=== PATIENT | male | born 1995 | race American Indian/Alaskan Native ===

== ENCOUNTER 2018-09-18 19:09 | Emergency (ER) | payer OTHER ==
--- NOTE | 2018-09-18 19:30 | Event Note ---
ED Screening Note Date of service: 09/18/18 Time: 19:27 ED Screening Note: This is a 23 y.o. M. that presents to the ER with pain to left jaw. Patient states she was coming down a ladder when he slipped and fell from the 3rd step. The left side of his face hit the counter top causing pain. Denies loc This initial assessment/diagnostic orders/clinical plan/treatment(s) is/are subject to change based on patients health status, clinical progression and re- assessment by fellow clinical providers in the ED. Further treatment and workup at subsequent clinical providers discretion. Patient/guardian urged not to elope from the ED as their condition may be serious if not clinically assessed and managed. Initial orders include: CT of facial bones
--- NOTE | 2018-09-18 20:13 | Emergency Department Report ---
ED Fall HPI - General Chief Complaint: Fall Stated Complaint: JAW INJURY Time Seen by Provider: 09/18/18 19:26 Source: patient Mode of arrival: Ambulatory - History of Present Illness Initial Comments: Patient is 23 years old male with no significant past medical history. Patient presented to the ER for evaluation after a fall from a three-step ladder landed on his left face complaining of left jaw pain. Patient denied any head injury, neck injury, chest injury or abdominal injury. No extremity tenderness. Patient is speaking in a full sentence was no difficulty. Patient also denied any swallowing problem. MD Complaint: fall -: Sudden, This afternoon Fall From: down stairs (#) When Fall Occurred: 1-3 hours [employer] Fall Witnessed: yes, by bystander Place Fall Occurred: work Loss of Consciousness: none Prolonged Down Time?: no Symptoms Prior to Fall: none Location: face Severity scale (0 -10): 4 Quality: sharp Context: tripped/slipped Associated Symptoms: denies - Related Data Allergies Allergy/AdvReac Type Severity Reaction Status Date / Time No Known Allergies Allergy Unverified 09/18/18 19:15 ED Review of Systems ROS: Stated complaint: JAW INJURY Other details as noted in HPI Comment: All other systems reviewed and negative Constitutional: denies: chills, fever Respiratory: denies: cough, orthopnea, shortness of breath, SOB with exertion Cardiovascular: denies: chest pain, palpitations Gastrointestinal: denies: abdominal pain Musculoskeletal: denies: back pain Neurological: denies: headache, weakness, numbness, paresthesias, confusion, a bnormal gait ED Past Medical Hx - Past Medical History Previous Medical History?: No - Surgical History Past Surgical History?: No - Social History Smoking Status: Never Smoker Substance Use Type: None ED Physical Exam - General Limitations: No Limitations General appearance: alert, in no apparent distress - Head Head exam: Present: atraumatic, normocephalic, normal inspection - ENT ENT exam: Present: other (left jaw tenderness.) - Neck Neck exam: Present: normal inspection, full ROM. Absent: tenderness, meningismus, lymphadenopathy, thyromegaly - Respiratory Respiratory exam: Present: normal lung sounds bilaterally. Absent: respiratory distress, wheezes, rales, rhonchi, stridor, chest wall tenderness, accessory muscle use, decreased breath sounds, prolonged expiratory - Cardiovascular Cardiovascular Exam: Present: regular rate, normal rhythm, normal heart sounds - GI/Abdominal GI/Abdominal exam: Present: soft, normal bowel sounds. Absent: distended, tenderness, guarding, rebound, rigid, organomegaly, mass, bruit, pulsatile mass, hernia - Extremities Exam Extremities exam: Present: normal inspection, full ROM, normal capillary refill. Absent: calf tenderness - Back Exam Back exam: Present: normal inspection, full ROM. Absent: tenderness, CVA tenderness (R), CVA tenderness (L), muscle spasm, paraspinal tenderness, vertebral tenderness - Neurological Exam Neurological exam: Present: alert, oriented X3, CN II-XII intact, normal gait, reflexes normal - Skin Skin exam: Present: warm, intact, normal color ED Course Vital Signs 09/18/18 09/18/18 09/18/18 19:15 20:20 20:25 Temperature 98.4 F 98.3 F Pulse Rate 64 72 Respiratory 18 13 13 Rate Blood Pressure 139/79 Blood Pressure 130/70 [Right] O2 Sat by Pulse 100 99 99 Oximetry ED Medical Decision Making - Radiology Data Radiology results: report reviewed - Medical Decision Making Patient is 23 years old male with no significant past medical history. Patient presented to the ER for evaluation after a fall from a three-step ladder landed on his left face complaining of left jaw pain. Patient denied any head injury, neck injury, chest injury or abdominal injury. No extremity tenderness. Pat ient is speaking in a full sentence was no difficulty. Patient also denied any swallowing problem. Patient in CT facial bones showed bilateral mandibular fracture. I discussed the patient with [facility], trauma. , from trauma accepted the patient to be transferred to [place] [facility]. Critical Care Time: Yes Critical care time in (mins) excluding proc time.: 30 Critical care attestation.: If time is entered above; I have spent that time in minutes in the direct care of this critically ill patient, excluding procedure time. ED Disposition Clinical Impression: Fall, Bilateral mandibular fracture Disposition: [id number] ANOTHER TYPE HLTHCARE Is pt being admited?: No Condition: Stable
--- NOTE | 2018-09-18 21:35 | Cat Scan Report ---
CT facial bones without contrast Clinical history: Left jaw pain FINDINGS: There is a minimally displaced fracture involving the body of the right mandible with obliq ue a component extending along the root of the posterior right premolar tooth the fracture also invol ves the cortex situated between the left at prevertebral or L2. The fracture also traverses the right submandibular canal along the course of the inferior alveolar nerve. There is also an oblique fracture involving the left ramus with slight displacement of the inferior c omponent. The fracture courses posterior to the left molar teeth at. This fracture also a crosses the left mandibular canal. The mandibular condyles and coronoid processes are intact. The condyles are a lso properly positioned within the to provide either joints. The orbital charles, paranasal sinuses and zygomatic arches appear intact. There is extensive mucosal t hickening within the ethmoid and maxillary sinuses. Milder findings are noted within the frontal and sphenoid sinuses at. The mastoid air cells are pneumatized. The optic globes appear to demonstrate ap propriate size and configuration. All CT scans at this location are performed using the CT dose reduc tion for ALARA by means of automated exposure control. IMPRESSION: There are fractures involving the body of the right mandible and ramus of the left mandible as detail ed above. There is sinus inflammatory disease as described. Signer Name: Mason Singletary MD Signed: 09/18/2018 9:31 PM Workstation Name: [id number]
[2018-09-18] MEDS ORDERED: MORPHINE ONE (21:59)
[2018-09-18] MEDS ORDERED: ZOFRAN ONE (21:59)
[2018-09-18] MEDS ORDERED: MORPHINE IV ONE (22:01)
[2018-09-18] MEDS ORDERED: ZOFRAN IV ONE (22:01)
[2018-09-18 22:18] VITALS: BP 137/66
== END 2018-09-18 22:30 | disposition other institution (70) ==
LOC: ED 19:09
DX: S02.642A Fracture of ramus of left mandible, initial encounter for closed fracture (principal); S82.891A Other fracture of right lower leg, initial encounter for closed fracture; W17.89XA Other fall from one level to another, initial encounter; Y93.89 Activity, other specified; Y92.69 Other specified industrial and construction area as the place of occurrence of the external cause; Y99.0 Civilian activity done for income or pay
CPT/HCPCS: 70486; 96374; 96375; 99291; J2270; J2405